=== PATIENT | male | born 1970 | race Caucasian/White ===

== ENCOUNTER 2022-01-11 09:17 | Outpatient (CLI) | payer OTHER, SELFPAY ==
--- NOTE | 2022-01-11 10:15 | CRLHL7_ITS ---
For Patients: As a result of the Century Cures Act, medical imaging exams and procedure reports are released immediately into your electronic medical record. You may view this report before your referring provider. If you have questions, please contact your health care provider. INDICATION: Abnormal skin sensation. Comparison none. Technique: Sagittal T1, T2, and STIR sequences. Axial T2/gradient sequences. FINDINGS: Normal vertebral body facet alignment. No fractures. No vertebral body loss of height. No spondylolisthesis. No ligamentous injury. No suspicious osseous lesions. Normal cord signal. No intradural mass or lesion. C1-2: No spinal canal narrowing. C2-3: No spinal canal or neural foraminal narrowing. C3-4: No narrowing of spinal canal. Uncovertebral joint hypertrophy results in mild narrowing of the left neural foramen. No narrowing of the right neural foramen. C4-5: Mild disc degeneration posterior disc bulge. No spinal canal or neural foraminal narrowing. C5-6: Disc degeneration posted disc bulge. No narrowing of spinal canal. Uncovertebral joint hypertrophy results in mild narrowing of the left neural foramen. No narrowing of the right neural foramen. C6-7: Disc degeneration posterior disc bulge or disc osteophyte complex. Mild narrowing of spinal canal. Moderate severe narrowing of the bilateral neural foramina with impingement of the C7 nerve roots. C7-T1: Disc generation posted disc bulge. No narrowing of spinal canal. Mild narrowing of the bilateral foramina. IMPRESSION: 1. Normal alignment. No fractures. 2. Normal cord signal. 3. At C5-6, mild narrowing of the left neuroforamen. 4. At C6-7, mild narrowing of the spinal canal. Moderate to severe narrowing of either neural foramina with impingement of the C7 nerve roots 5. At C7-T1, mild narrowing of the bilateral foramina Dictated by Galindo Sanchez MD @ 01/11/2022 12:47:57 PM (Electronically Signed)
== END 2022-01-11 09:18 | disposition home or self-care (01) ==
LOC: MRI 09:22
PROVIDERS: PCP Family Medicine; Visit Provider Family Medicine
DX: R20.8 Other disturbances of skin sensation (principal); G58.9 Mononeuropathy, unspecified; M50.223 Other cervical disc displacement at C6-C7 level
CPT/HCPCS: 72141

== ENCOUNTER 2022-03-28 13:18 | Outpatient (CLI) | payer OTHER, SELFPAY ==
[2022-03-28 21:45] LABS: Albumin* 4.5 g/dL (3.3-5.0); Chloride* 103 mmol/L (96-114); Potassium* 4.1 mmol/L (3.6-5.1); Sodium* 139 mmol/L (135-149)
[2022-03-28 21:47] LABS: Bilirubin Total* 0.8 mg/dL (0.1-1.5); Carbon Dioxide* 30 mmol/L (20-32); Cholesterol* 211 mg/dL (90-199); Creatinine* 0.9 mg/dL (0.5-1.5); Estimated Glomerular Filt Rate 102 ml/min; Total Protein* 7.2 g/dL (6.0-8.3)
[2022-03-28 21:48] LABS: Alanine Aminotransferase* 28 U/L (4-50); Alkaline Phosphatase* 88 U/L (40-150); Aspartate Amino Transferase* 29 U/L (12-35); Blood Urea Nitrogen* 14 mg/dL (7-30); Glucose* 93 mg/dL (60-115); HDL Cholesterol* 77 mg/dL (>=40); LDL Cholesterol Calculated 116 mg/dL (<100); Triglycerides* 89 mg/dL (40-149)
== END 2022-03-28 13:19 | disposition home or self-care (01) ==
PROVIDERS: PCP Physician Assistant Medical; Visit Provider Physician Assistant Medical
DX: Z00.00 Encounter for general adult medical examination without abnormal findings (principal); Z13.6 Encounter for screening for cardiovascular disorders; Z12.5 Encounter for screening for malignant neoplasm of prostate; Z13.29 Encounter for screening for other suspected endocrine disorder
CPT/HCPCS: 80053; 80061; 84153; 84443

== ENCOUNTER 2023-02-27 10:37 | Outpatient (CLI) | payer OTHER, SELFPAY | END 2023-02-27 10:38 | disposition home or self-care (01) | PROVIDERS: PCP Physician Assistant Medical; Visit Provider Physician Assistant Medical | DX: Z00.00 Encounter for general adult medical examination without abnormal findings (principal); R79.89 Other specified abnormal findings of blood chemistry; E78.5 Hyperlipidemia, unspecified; Z13.0 Encounter for screening for diseases of the blood and blood-forming organs and certain disorders involving the immune mechanism; Z13.1 Encounter for screening for diabetes mellitus; Z12.5 Encounter for screening for malignant neoplasm of prostate; Z13.6 Encounter for screening for cardiovascular disorders; Z11.59 Encounter for screening for other viral diseases | CPT/HCPCS: 80053; 80061; 84153; 84443; 86703; 86803 ==

== ENCOUNTER 2024-02-25 10:27 | Outpatient (CLI) | payer OTHER, SELFPAY | END 2024-02-25 10:28 | disposition home or self-care (01) | PROVIDERS: PCP Physician Assistant Medical; Visit Provider Internal Medicine | DX: E78.5 Hyperlipidemia, unspecified (principal); N52.9 Male erectile dysfunction, unspecified; Z13.228 Encounter for screening for other metabolic disorders | CPT/HCPCS: 80053; 80061; G0103 ==

== ENCOUNTER 2025-02-15 13:06 | Outpatient (CLI) | payer OTHER, SELFPAY | END 2025-02-15 13:07 | disposition home or self-care (01) | PROVIDERS: PCP Physician Assistant Medical; Visit Provider Physician Assistant Medical | DX: Z00.00 Encounter for general adult medical examination without abnormal findings (principal); E78.5 Hyperlipidemia, unspecified; N52.9 Male erectile dysfunction, unspecified; Z12.5 Encounter for screening for malignant neoplasm of prostate | CPT/HCPCS: 80053; 80061; 84443; G0103 ==